=== PATIENT | female | born 1945 | race Caucasian/White ===

== ENCOUNTER 2017-07-26 11:19 | Observation (INO) | payer OTHER ==
[~2017-07-26] VITALS: Ht 160 cm; Wt 84.4 kg
[2017-07-26 13:12] LABS: CHLORIDE 105 mEq/L (99-109); POTASSIUM 4.1 mEq/L (3.7-5.4); SODIUM 139 mEq/L (136-147)
[2017-07-26 13:14] LABS: GLUCOSE 112 mg/dL (70-99)
[2017-07-26 13:15] LABS: ANION GAP 12 MEQ/L (2-14)
[2017-07-26 13:18] LABS: GFR ESTIMATE (CALCULATED) > 59 mL/min/
[2017-07-26 13:19] LABS: UREA NITROGEN (BUN) 19 mg/dL (9-23)
[2017-07-26 13:24] LABS: TROP-I INTERPRETATION NEGATIVE; TROPONIN-I < 0.01 ng/mL (0.0-0.30)
[2017-07-26 13:25] LABS: HEMATOCRIT 30.8 % (36.0-46.0); MCH 28.1 PG (29.0-34.0); MCHC 32.8 G/DL (30.0-36.0); MCV 85.8 FL (83-99); MEAN PLAT.VOLUME 9.7 uM^3 (9.5-12.4); PLATELET COUNT 274 K/uL (156-360); RBC DIS.WIDTH-SD 43.6 % (39-53); RED BLOOD COUNT 3.59 M/uL (3.80-5.20); WHITE BLOOD COUNT 8.1 K/uL (4.1-10.2)
[2017-07-26] MEDS ORDERED: CYANOCOBALAM1000 MCG PO (15:29)
[2017-07-26] MEDS ORDERED: ASPIR-TRIN325 M1 PO (15:30)
[2017-07-26] MEDS ORDERED: HYDROCHLOROTHIA25 MG PO (15:30)
[2017-07-26] MEDS ORDERED: TRICOR145 MG PO (15:31)
[2017-07-26] MEDS ORDERED: LEVOTHYROXINE100 MCG PO (15:31)
[2017-07-26] MEDS ORDERED: PRINIVIL20 MG PO (15:32)
[2017-07-26] MEDS ORDERED: ATORVASTATIN CA20 MG PO (15:32)
[2017-07-26] MEDS ORDERED: BUPROPION XL150 MG PO (15:33)
[2017-07-26] MEDS ORDERED: CLONAZEPAM0.5 MG PO (15:33)
[2017-07-26] MEDS ORDERED: VENLAFAXINE HC150 M1 PO (15:34)
[2017-07-26] MEDS ORDERED: VENLAFAXINE HCL75 M3 PO (15:35)
[2017-07-26] MEDS ORDERED: AVENTYL,PAMELOR50 MG PO (15:35)
[2017-07-26] MEDS ORDERED: POTASSIUM CHLO20 ME2 PO (15:37)
[2017-07-26] MEDS ORDERED: METFORMIN HCL1000 MG PO (15:38)
[2017-07-26] MEDS ORDERED: TRADJENTA5 MG PO (15:38)
[2017-07-26] MEDS ORDERED: AMLODIPINE BESYL5 MG PO (15:39)
[2017-07-26] MEDS ORDERED: ALEVE220 M2 PO (15:42)
[2017-07-26 16:03] LABS: Estimated Average Glucose 126 mg/dL (70-123)
[2017-07-26 16:19] LABS: HDL CHOLESTEROL 32 MG/DL (Desirable>=50); LDL CHOLESTEROL 110 mg/dL (Desirable<100); NON-HDL CHOLESTEROL 172 mg/dL (Desirable<160); TOTAL CHOLESTEROL 204 mg/dL (Desirable<200); TRIGLYCERIDES 310 MG/DL (Normal: <150)
[2017-07-26 19:31] LABS: TROP-I INTERPRETATION NEGATIVE; TROPONIN-I < 0.01 ng/mL (0.0-0.30)
[2017-07-26 20:00] VITALS: BP 136/63
[2017-07-26 20:31] LABS: POINT-OF-CARE METER ID UU13113700
[2017-07-26 21:26] LABS: POINT-OF-CARE METER ID UU13113700
[2017-07-27] VITALS: BP 115/55
[2017-07-27 01:48] LABS: TROP-I INTERPRETATION NEGATIVE; TROPONIN-I < 0.01 ng/mL (0.0-0.30)
[2017-07-27 04:00] VITALS: BP 112/55
[2017-07-27 08:00] LABS: POINT-OF-CARE METER ID UU14162513
[2017-07-27 08:30] VITALS: BP 105/55
[2017-07-27 12:26] LABS: POINT-OF-CARE METER ID UU14162513
[2017-07-27 12:52] VITALS: BP 118/57
[2017-07-27] MEDS ORDERED: AMLODIPINE BESYL5 MG PO (13:38)
== END 2017-07-27 16:09 ==
LOC: EME 11:19 → 5WEST 13:49 → EDOF 13:49 → ENRESERV 13:51 → 5WEST 17:23
PROVIDERS: Emergency Medicine; Internal Medicine
DX: R07.9 Chest pain, unspecified (principal); F33.2 Major depressive disorder, recurrent severe without psychotic features; E89.0 Postprocedural hypothyroidism; I10 Essential (primary) hypertension; E78.5 Hyperlipidemia, unspecified; E11.9 Type 2 diabetes mellitus without complications; F41.9 Anxiety disorder, unspecified; M19.90 Unspecified osteoarthritis, unspecified site; R45.851 Suicidal ideations; Z79.4 Long term (current) use of insulin; Z87.891 Personal history of nicotine dependence; Z79.82 Long term (current) use of aspirin
CPT/HCPCS: 71010; 80048; 80061; 82948; 83036; 84484; 85027; 93005; 99281; 99285; G0378; J1650; J1815; J2270

== ENCOUNTER 2017-07-29 15:50 | Emergency (ER) | payer OTHER ==
[~2017-07-29] VITALS: Ht 160 cm; Wt 83.0 kg
[~2017-07-29 15:50] MED LIST: ALEVE220 M2 PO; AMLODIPINE BESYL5 MG PO; ASPIR-TRIN325 M1 PO; ATORVASTATIN CA20 MG PO; AVENTYL,PAMELOR50 MG PO; BUPROPION XL150 MG PO; CLONAZEPAM0.5 MG PO; CYANOCOBALAM1000 MCG PO; HYDROCHLOROTHIA25 MG PO; LEVOTHYROXINE100 MCG PO; METFORMIN HCL1000 MG PO; POTASSIUM CHLO20 ME2 PO; PRINIVIL20 MG PO; TRADJENTA5 MG PO; TRICOR145 MG PO; VENLAFAXINE HC150 M1 PO; VENLAFAXINE HCL75 M3 PO
[2017-07-29 19:50] VITALS: BP 123/80
== END 2017-07-29 20:11 ==
LOC: EME 15:50
PROC: 2W3KX1Z Immobilization of Left Finger using Splint (ICD-10-PCS; principal; 2017-07-29)
DX: S62.645A Nondisplaced fracture of proximal phalanx of left ring finger, initial encounter for closed fracture (principal); S00.81XA Abrasion of other part of head, initial encounter; W18.09XA Striking against other object with subsequent fall, initial encounter; Y93.01 Activity, walking, marching and hiking; Y92.89 Other specified places as the place of occurrence of the external cause; E11.22 Type 2 diabetes mellitus with diabetic chronic kidney disease; I12.9 Hypertensive chronic kidney disease with stage 1 through stage 4 chronic kidney disease, or unspecified chronic kidney disease; N18.9 Chronic kidney disease, unspecified; E78.5 Hyperlipidemia, unspecified; Z79.84 Long term (current) use of oral hypoglycemic drugs; Z87.891 Personal history of nicotine dependence
CPT/HCPCS: 70450; 73130; 99281; 99283